=== PATIENT | male | born 1990 | race Hispanic/Latino ===

== ENCOUNTER 2017-03-26 16:29 | Emergency (ER) | payer BC ==
[2017-03-26] MEDS ORDERED: Adacel (T-DAP) 0.5 ML VIAL ONE (16:50)
[2017-03-26] MEDS ORDERED: Bacitracin Zinc 1 Packet ONE (18:15)
== END 2017-03-26 18:32 | disposition home or self-care (01) ==
LOC: ERS 16:29
DX: S68.110A Complete traumatic metacarpophalangeal amputation of right index finger, initial encounter (principal); F17.210 Nicotine dependence, cigarettes, uncomplicated; W26.8XXA Contact with other sharp object(s), not elsewhere classified, initial encounter
CPT/HCPCS: 64450; 90471; 90715

== ENCOUNTER 2019-05-19 12:13 | Emergency (ER) | payer BC, OTHER, SELFPAY | END 2019-05-19 13:36 | disposition home or self-care (01) | LOC: ERS 12:13 | DX: J02.9 Acute pharyngitis, unspecified (principal); F17.210 Nicotine dependence, cigarettes, uncomplicated | CPT/HCPCS: 87081; 87430; 99283 ==

== ENCOUNTER 2019-08-09 06:01 | Emergency (ER) | payer SELFPAY | END 2019-08-09 06:55 | disposition short-term general hospital (02) | LOC: ERS 06:01 | DX: R11.2 Nausea with vomiting, unspecified (principal); R19.7 Diarrhea, unspecified; F17.210 Nicotine dependence, cigarettes, uncomplicated | CPT/HCPCS: 99283 ==

== ENCOUNTER 2020-04-21 18:37 | Emergency (ER) | payer SELFPAY ==
--- NOTE | 2020-04-21 19:09 | RAD ---
XR Chest Pa Lat STANDARD HISTORY: Chest pain, dizziness, headache COMPARISON: None FINDINGS: The heart size is normal. The lungs are well expanded without focal areas of consolidation, pneumothorax or pleural effusions. IMPRESSION: No radiographic evidence of acute cardiopulmonary process.
[2020-04-21 19:20] LABS: #Basophils 0.1 thou/uL (0.0-0.2); #Eosinphils 0.2 thou/uL (0.0-0.7); #Lymphocytes 2.6 thou/uL (1.20-3.40); #Monocytes 0.7 thou/uL (0.11-0.59); #Neutrophils 4.7 thou/uL (1.40-6.50); %Basophils 1.4 % (0.0-1.0); %Eosinophils 2.2 % (0.0-10.0); %Lymphocytes 31.2 % (21.0-51.0); %Monocytes 7.9 % (0.0-10.0); %Neutrophils 57.3 % (42.0-75.0); Hemoglobin 15.9 g/dL (14.0-18.0); Mean Corpuscular HGB CONC 33.4 g/dL (32.0-36.0); Mean Corpuscular Hemoglobin 31.2 pg (27.0-31.0); Mean Corpuscular Volume 93.4 fL (78.0-98.0); Mean Platelet Volume 7.8 fL (7.4-10.4); Platelet Count 281 thou/uL (130-400); RBC Distribution Width 11.8 % (11.5-14.5); White Blood Cell (WBC) Count 8.2 thou/uL (4.8-10.8)
[2020-04-21 19:45] LABS: ALT (SGPT) 22 U/L (8-55); AST (SGOT) 17 U/L (5-34); Albumin 4.7 g/dL (3.5-5.0); Alkaline Phosphatase 81 U/L (40-110); Anion Gap 13 mmol/L (10-20); BUN (Urea Nitrogen) 17 mg/dL (8.9-20.6); Bilirubin, Total 0.4 mg/dL (0.2-1.2); Calc. Creatinine Clearance 0 mL/min (70-130); Calcium 9.4 mg/dL (7.8-10.44); Carbon Dioxide 25 mmol/L (22-29); Chloride 106 mmol/L (98-107); Globulin 3.3 g/dL (2.4-3.5); Glucose 101 mg/dL (70-105); Potassium 4.1 mmol/L (3.5-5.1); Sodium 140 mmol/L (136-145)
--- NOTE | 2020-04-25 16:32 | EKG ---
Test Reason : Blood Pressure : / mmHG Vent. Rate : 081 BPM Atrial Rate : 081 BPM P-R Int : 126 ms QRS Dur : 084 ms QT Int : 374 ms P-R-T Axes : 068 061 045 degrees QTc Int : 434 ms Normal sinus rhythm Normal ECG Confirmed by YENY DUPREE M.D. ([id number]), publications editor BAYRON DEE ([id number]) on 04/25/2020 4:32:33 PM Referred By: Confirmed By:YENY DUPREE M.D.
== END 2020-04-21 22:35 | disposition home or self-care (01) ==
LOC: ERS 18:37
DX: R07.89 Other chest pain (principal); F17.210 Nicotine dependence, cigarettes, uncomplicated
CPT/HCPCS: 36415; 71046; 80053; 84484; 85025; 93005

== ENCOUNTER 2021-04-08 19:49 | Emergency (ER) | payer SELFPAY ==
[2021-04-09 10:45] LABS: SARS-CoV-2 PCR by NAA Not Detected (NotDetected)
== END 2021-04-08 21:13 | disposition home or self-care (01) ==
LOC: ERS 19:49
DX: B34.9 Viral infection, unspecified (principal); F17.210 Nicotine dependence, cigarettes, uncomplicated; Z20.822 Contact with and (suspected) exposure to COVID-19
CPT/HCPCS: 99284; U0003; U0005